=== PATIENT | female | born 1985 | race Caucasian/White ===

== ENCOUNTER 2017-06-05 09:29 | Emergency (ER) | payer OTHER ==
[~2017-06-05] VITALS: Ht 165.1 cm; Wt 61.2 kg
[~2017-06-05 09:29] MED LIST: DIFLUCAN150 M1 PO; IBUPROFEN800 M1 PO; NAPROSYN500 M1 PO; NICODERM CQ1 EAC2 TOP; REGLAN10 M1 PO
--- NOTE | 2017-06-05 10:56 | ED GI/GU/ABDOMINAL COMPLAINT ---
History of Present Illness General Chief Complaint: Abdominal Pain/Flank Pain Stated Complaint: ABDOMINAL PAIN ON RT SIDE, NAUSEA, DIZZINESS Source: patient, old records Exam Limitations: no limitations Vital Signs & Intake/Output Vital Signs & Intake/Output Vital Signs Date Time Temp Pulse Resp B/P B/P Pulse O2 O2 Flow FiO2 Mean Ox Delivery Rate 06/05 1548 98.2 70 18 114/55 100 Room Air ED Intake and Output 06/06 0000 06/05 1200 Intake Total 0 Output Total Balance 0 Intake, IV 0 Patient 135 lb 138 lb Weight Weight Reported by Patient Reported by Patient Measurement Method Allergies Coded Allergies: coconut oil (RASH 04/15/17) latex (RASH 04/15/17) Reconcile Medications Cephalexin (Keflex) 500 MG CAPSULE 1 CAP PO BID uti Nicotine (Nicoderm Cq) 21 MG/24 HOUR PATCH.TD24 1 PAT TOP DAILY SMOKING ( Reported) Triage Note: RIGHT SIDED ABDOMINAL PAIN AROUND RIB AREA. STATES PAIN IS SHARP AND WORSE WHEN SHE SITS DOWN. TODAY THE PAIN IS SHOOTING INTO HER GROIN AREA. PT STATES SHE HAS BEEN HAVING THESE PAINS X FEW MONTHS AND HAS BEEN WORKED UP FOR IT. SHE IS ON OMEPRAZOLE NOW IN ADDITION TO OTHER GI MEDS BUT PAIN HAS COME BACK. PT STATES SHE FEELS BLOATED Triage Nurses Notes Reviewed? yes ? N Is pt currently ? No Onset: Gradual Duration: day(s): Timing: recent history Quality/Severity: sharpness Location: right upper quadrant Radiation: groin HPI: 31YO female with history of ovarian cyst presents emergency department complaining of right sided upper abdominal pain radiating towards her groin intermittently for the past several days. Patient states that since March 2017 she has had intermittent sharp abdominal pains for which she has been evaluated here in the emergency department for 3 times as well as at her PSYCHIATRY TEACHER' s office. Patient wanted to have her IUD removed in April however her PSYCHIATRY TEACHER informed her that IUD appeared to be situated appropriately and recommended that she leave her IUD in place. PSYCHIATRY TEACHER recommended that she follow up with GI, did not feel her abdominal pain was related to RENEWALS REPRESENTATIVE pathology. 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 Brown who has prescribed her hyoscamine, Zofran. Dr. Brown also recommended gallbladder ultrasound which was scheduled for 4 days from now. States that she was at work today and pain was so severe that she had to go home, while she was driving home pain worsened and she reported here to the emergency department. Since symptoms began March patient reports intermittent loose stools. The patient denies fevers, chills, urinary symptoms, changes in vaginal discharge. (Edita Macario) Past History Travel History Traveled to [place] past 21 day No Medical History Any Pertinent Medical History? see below for history Neurological: NONE EENT: NONE Cardiovascular: NONE Respiratory: NONE Gastrointestinal: GERD Hepatic: NONE Renal: NONE Musculoskeletal: NONE Psychiatric: NONE Endocrine: NONE Blood Disorders: NONE Cancer(s): NONE RENEWALS REPRESENTATIVE/Reproductive: miscarriage, OVARIAN CYST Surgical History Surgical History: Psychosocial History What is your primary language Kiswahili Tobacco Use: Current Daily Use Daily Tobacco Use Amount/Type: => 5 Cigarettes daily ETOH Use: occasional use Illicit Drug Use: denies illicit drug use Family History Hx Contributory? No (Edita Macario) Review of Systems Review of Systems Constitutional: Reports: no symptoms. EENTM: Reports: no symptoms. Respiratory: Reports: no symptoms. Cardiovascular: Reports: no symptoms. GI: Reports: see HPI. Genitourinary: Reports: no symptoms. Musculoskeletal: Reports: no symptoms. Skin: Reports: no symptoms. Neurological/Psychological: Reports: no symptoms. Hematologic/Endocrine: Reports: no symptoms. Immunologic/Allergic: Reports: no symptoms. All Other Systems: Reviewed and Negative (Edita Macario) Physical Exam Physical Exam General Appearance: well developed/nourished, no apparent distress, alert, awake Head: atraumatic, normal appearance Eyes: Bilateral: normal appearance. Ears, Nose, Throat, Mouth: hearing grossly normal Neck: normal inspection, supple, full range of motion Respiratory: normal breath sounds, no respiratory distress, lungs clear Cardiovascular: regular rate/rhythm Gastrointestinal: normal bowel sounds, soft, no organomegaly, RUQ and suprapubic tenderness without rebound or gaurding Back: normal inspection, normal range of motion, no CVA tenderness Extremities: normal range of motion Neurologic/Psych: awake, alert, oriented x 3, normal mood/affect Skin: intact, normal color, warm/dry Core Measures ACS in differential dx? No Sepsis Present: No Sepsis Focused Exam Completed? No (Edita Macario) Progress Differential Diagnosis: appendicitis, biliary colic, bowel obstruction, colon cancer, cholecystitis, diverticulitis, gastritis, hepatitis, hemorrhoids, inflamm bowel dis, kidney stone, ovarian cyst, ovarian torsion, pancreatitis, PID/cervicitis, peptic ulcer, PUD/GERD, SBO, UTI/pyelo Plan of Care: Laboratory Tests 06/05/17 1442: Urine Color YEL, Urine Clarity HAZY H, Urine pH 6.0, Ur Specific [place] 1.025, Urine Protein NEG, Urine Ketones NEG, Urine Nitrite NEG, Urine Bilirubin NEG, Urine Urobilinogen 0.2, Ur Leukocyte Esterase LARGE H, Ur Microscopic SEDIMENT EXAMINED, Urine RBC RARE, Urine WBC 15-25 H, Ur Epithelial Cells MANY H, Urine Bacteria FEW H, Urine Hemoglobin TRACE-LYSED, Urine Glucose NEG, Urine Test NEGATIVE Ultrasound is without acute abnormality. Patient's pain has been present intermittently since March. Patient's blood work is within normal limits. All findings were discussed with the patient. Urine shows possibility for UTI, patient has suprapubic tenderness, we'll treat with antibiotics accordingly. The patient will follow-up with Dr. Brown regarding her abdominal pain. She is in no acute distress, sleeping in emergency department while waiting for results, nontoxic appearing. The patient agrees with the plan of care. There is a low suspicion for ovarian torsion given physical exam without lower quadrant tenderness, patient not acutely distressed. No McBurney's point tenderness, no Rovsing sign, suspicion for appendicitis. Diagnostic Imaging: Viewed by Me: Radiology Read. Discussed w/RAD: Radiology Read. Radiology Impression: PATIENT: SANDY JORGE PRESENT AGE: 31 PATIENT ACCOUNT NO: [id number] : 86 LOCATION: [facility] ORDERING PHYSICIAN: Edita KEEN SERVICE DATE: 06/05/17-1133 EXAM TYPE: US - US-COMPLETE ABDOMEN EXAMINATION: US ABDOMEN COMPLETE CLINICAL INFORMATION: Back and right upper quadrant pain radiating to groin.. COMPARISON: No similar prior examinations are available for comparison. A CT abdomen pelvis dated 04/08/2017 was reviewed. TECHNIQUE: Real-time imaging of the abdominal viscera. FINDINGS: PANCREAS: Visualized portions of the pancreas are normal in appearance. ABDOMINAL AORTA: The proximal segment is normal in caliber. INFERIOR VENA CAVA: Visualized portions are normal. LIVER: Normal. The liver demonstrates normal size, contour and echogenicity. No focal lesion or intrahepatic biliary duct dilatation. GALLBLADDER: Normal. The gallbladder is physiologically distended without evidence of stones, sludge, polyps, wall thickening or pericholecystic fluid. COMMON BILE DUCT: Normal in caliber measuring 0.3 cm in diameter. RIGHT KIDNEY: Normal. No hydronephrosis. No renal calculi or focal parenchymal lesions. The kidney measures 10.9 cm in maximum dimension. LEFT KIDNEY: Normal. No hydronephrosis. No renal calculi or focal parenchymal lesions. The kidney measures 10.1 cm in maximum dimension. SPLEEN: Normal. The spleen measures 11.4 cm in maximum dimension. FREE FLUID: None. IMPRESSION: Unremarkable sonographic imaging of the abdomen. DICTATED BY: Juan Manuel Patel MD DATE/TIME DICTATED:1206 TRUCKLOAD CHECKER:ALISHA DATE/TIME TRANSCRIBED:06/05/171206 CONFIDENTIAL, DO NOT COPY WITHOUT APPROPRIATE AUTHORIZATION. <Electronically signed in Other Vendor System> SIGNED BY: Juan Manuel Patel MD 06/05/17 1214 Initial ED EKG: none (Stacey KEEN,Edita Ruiz) Departure Departure Disposition: HOME OR SELF CARE Condition: Stable Clinical Impression Primary Impression: Abdominal pain Qualifiers: Abdominal location: right upper quadrant Qualified Code: R10.11 - Right upper quadrant pain Secondary Impressions: Bacteria in urine Referrals: Elodia Lynne (PCP/Family) Additional Instructions: Take full course of antibiotics. As discussed, follow-up with Dr. Brown next week regarding her abdominal pain. Continue all medications as prescribed by Dr. Brown. Return to the emergency Department with any worsening symptoms or other concerns. Please note that there might be incidental findings in your evaluation that are unrelated to the current emergency department visit. Please notify your primary care doctor about this emergency department visit in order to obtain and review all of the testing performed so that these incidental findings can be monitored as needed. If you had an x-ray performed, please understand that some fractures may not be seen on the initial set of x-rays. If your symptoms persist you might need a repeat set of x-rays to check for such a fracture. If you had a laceration evaluated, please understand that foreign bodies such as glass or wood may not be visible to the naked eye or on plain x-rays. If the wound becomes red, swollen, increasingly more painful or if there is any drainage from the wound, please have it reevaluated by a physician for the possibility of a retained foreign body. If you're unable to follow up as outlined in the discharge instructions please return to the emergency department. Thank you for choosing the [facility] Emergency Department for your care. It was a pleasure to serve you today. Departure Forms: Customer Survey General Discharge Information Prescriptions: Current Visit Scripts Cephalexin (Keflex) 1 CAP PO BID #10 CAP (Stacey KEEN,Edita Ruiz) PA/PATTERN PERFORATING MACHINE OPERATOR Co-Sign Statement Statement: ED Attending supervision documentation- [] I saw and evaluated the patient. I have also reviewed all the pertinent lab results and diagnostic results. I agree with the findings and the plan of care as documented in the PA's/PATTERN PERFORATING MACHINE OPERATOR's documentation. [X] I have reviewed the ED Record and agree with the PA's/PATTERN PERFORATING MACHINE OPERATOR's documentation. [] Additions or exceptions (if any) to the PAs/PATTERN PERFORATING MACHINE OPERATOR's note and plan are summarized below: [] (Jose Rollins DO
--- NOTE | 2017-06-05 12:14 | ULTRASOUND REPORT ---
EXAMINATION: US ABDOMEN COMPLETE CLINICAL INFORMATION: Back and right upper quadrant pain radiating to groin.. COMPARISON: No similar prior examinations are available for comparison. A CT abdomen pelvis dated 04/08/2017 was reviewed. TECHNIQUE: Real-time imaging of the abdominal viscera. FINDINGS: PANCREAS: Visualized portions of the pancreas are normal in appearance. ABDOMINAL AORTA: The proximal segment is normal in caliber. INFERIOR VENA CAVA: Visualized portions are normal. LIVER: Normal. The liver demonstrates normal size, contour and echogenicity. No focal lesion or intrahepatic biliary duct dilatation. GALLBLADDER: Normal. The gallbladder is physiologically distended without evidence of stones, sludge, polyps, wall thickening or pericholecystic fluid. COMMON BILE DUCT: Normal in caliber measuring 0.3 cm in diameter. RIGHT KIDNEY: Normal. No hydronephrosis. No renal calculi or focal parenchymal lesions. The kidney measures 10.9 cm in maximum dimension. LEFT KIDNEY: Normal. No hydronephrosis. No renal calculi or focal parenchymal lesions. The kidney measures 10.1 cm in maximum dimension. SPLEEN: Normal. The spleen measures 11.4 cm in maximum dimension. FREE FLUID: None. IMPRESSION: Unremarkable sonographic imaging of the abdomen.
[2017-06-05 12:42] LABS: ABSOLUTE BASOPHIL COUNT 0 /CUMM (0.0-0.2); ABSOLUTE EOSINOPHIL COUNT 0.1 /CUMM (0.0-0.7); ABSOLUTE GRANULOCYTE CT 5.5 /CUMM (1.4-6.5); ABSOLUTE LYMPH COUNT 4.2 /CUMM (1.2-3.4); ABSOLUTE MONOCYTE COUNT 0.6 /CUMM (0.10-0.60); BASOPHIL % 0.3 % (0.0-2.0); EOSINOPHIL % 0.8 % (0-5); GRANULOCYTE % 52.4 % (42.2-75.2); HEMATOCRIT 41.5 % (37-47); MEAN CORPUSCULAR HGB 28.7 PG (27.0-31.0); MEAN CORPUSCULAR HGB CONC 32.9 G/DL (33.0-37.0); MEAN CORPUSCULAR VOLUME 87.1 FL (81.0-99.0); MEAN PLATELET VOLUME 8.8 FL (7.4-10.4); PLATELET COUNT 288 /CUMM (130-400); RBC DISTRIBUTION WIDTH 13.1 % (11.5-14.5); RED BLOOD CELL CT 4.77 /CUMM (4.20-5.40); WHITE BLOOD CELL COUNT 10.4 /CUMM (4.8-10.8)
[2017-06-05] MEDS ORDERED: KEFLEX500 M1 PO (15:37)
[2017-06-05 15:48] VITALS: BP 114/55
== END 2017-06-05 15:58 ==
LOC: ERH 09:29
PROVIDERS: Physician Assistant Medical
DX: R10.11 Right upper quadrant pain (principal); R10.2 Pelvic and perineal pain; B96.89 Other specified bacterial agents as the cause of diseases classified elsewhere
CPT/HCPCS: 81001; 81025